=== PATIENT | male | born 1940 | race Caucasian/White ===

== ENCOUNTER → 2017-11-20 | Outpatient (CLI) | payer MEDICARE ==
[~2017-11-20] MED LIST: AMLODIPINE10 MG PO; ASPIRIN81 M1 PO; CARVEDILOL12.5 MG PO; CIPROFLOXACIN500 MG PO; HYDR25T PO; LOPRESSOR25 MG PO; LOSARTAN POTASS50 M1 PO; LUMIGAN 2.5 ML2.5 ML OPH; PLAVIX75 MG PO; PRAZOSIN HCL1 MG PO; SIMVASTATIN80 MG PO; VITAMIN C1000 M2 PO; VITAMIN D31000 IU PO; XALATAN 0.005%2.5 ML INTRAOC
[2017-11-20 12:38] LABS: BASO # 0.1 10*3/uL (0.0-0.1); BASO % 1.1 % (0.0-1.0); EOS # 0.5 10*3/uL (0.0-0.4); EOS % 3.9 % (1.0-4.0); HEMATOCRIT 41.9 % (42.0-52.0); HEMOGLOBIN 14.7 g/dl (14.0-18.0); LYMPH # 2.3 10*3/uL (1.3-4.4); LYMPH % 19.6 % (27.0-41.0); MEAN CELL VOLUME 93.7 fl (80.0-94.0); MEAN CORPUSCULAR HGB 32.9 pg (27.0-31.0); MEAN CORPUSCULAR HGB CONC 35.1 g/dl (33.0-37.0); MEAN PLATELET VOLUME 10.5 fl (9.6-12.3); MONO % 8.1 % (3.0-9.0); NEUT # 7.8 10*3/uL (2.3-7.9); NEUT % 66.8 % (47.0-73.0); PLATELET COUNT AUTOMATED 196 10*3/uL (130-400); RED BLOOD COUNT 4.47 10*6/uL (4.50-5.90); RED CELL DISTRI WIDTH 12.2 % (0-14.5); WHITE BLOOD COUNT 11.7 10*3/uL (4.8-10.8)
[2017-11-20 12:40] LABS: BILIRUBIN NEGATIVE (NEGATIVE); BLOOD NEGATIVE (NEGATIVE); CLARITY CLEAR (CLEAR); COLOR YELLOW (YELLOW); GLUCOSE NEGATIVE (NEGATIVE); KETONE NEGATIVE (NEGATIVE); LEUKO ESTERASE NEGATIVE (NEGATIVE); NITRITE NEGATIVE (NEGATIVE); UROBILINOGEN 0.2 E.U./dl (0.2-1.0)
[2017-11-20 12:48] LABS: ACT PARTIAL THROMBO TIME 26.8 SECONDS (20.8-31.5)
[2017-11-20 13:16] LABS: ALBUMIN 3.7 gm/dl (3.1-4.5); ALKALINE PHOSPHATASE 91 U/L (45-117); BUN 14 mg/dl (7-24); CHLORIDE 101 mmol/L (98-107); POTASSIUM 3.8 mmol/L (3.5-5.1); SGOT/AST 19 IU/L (3-35); SGPT/ALT 28 U/L (12-78); SODIUM 135 mmol/L (136-145); TOTAL PROTEIN 7.2 gm/dL (6.4-8.2)
== END | disposition home or self-care (01) ==
LOC: LAB 11:31
PROVIDERS: Orthopaedic Surgery
DX: Z01.818 Encounter for other preprocedural examination (principal); I10 Essential (primary) hypertension; R35.0 Frequency of micturition; M79.669 Pain in unspecified lower leg; E78.00 Pure hypercholesterolemia, unspecified; M19.90 Unspecified osteoarthritis, unspecified site; R94.31 Abnormal electrocardiogram [ECG] [EKG]; Z79.899 Other long term (current) drug therapy; Z87.891 Personal history of nicotine dependence

== ENCOUNTER → 2019-09-19 | Outpatient (CLI) | payer MEDICARE, OTHER | END | disposition home or self-care (01) | LOC: CARD 12:01 | DX: I65.23 Occlusion and stenosis of bilateral carotid arteries (principal); I34.0 Nonrheumatic mitral (valve) insufficiency ==

== ENCOUNTER → 2019-09-20 | Outpatient (CLI) | payer MEDICARE, OTHER ==
[2019-09-20 10:41] LABS: BASO # 0.1 10*3/uL (0.0-0.1); BASO % 0.8 % (0.0-1.0); EOS # 0.6 10*3/uL (0.0-0.4); EOS % 6.5 % (1.0-4.0); HEMATOCRIT 43.1 % (42.0-52.0); HEMOGLOBIN 14.3 g/dl (14.0-18.0); LYMPH # 1.5 10*3/uL (1.3-4.4); MEAN CELL VOLUME 100.7 fl (80.0-94.0); MEAN CORPUSCULAR HGB 33.4 pg (27.0-31.0); MEAN CORPUSCULAR HGB CONC 33.2 g/dl (33.0-37.0); MEAN PLATELET VOLUME 11.5 fl (9.6-12.3); MONO # 0.8 10*3/uL (0.1-1.0); NEUT # 5.7 10*3/uL (2.3-7.9); NEUT % 66.2 % (47.0-73.0); PLATELET COUNT AUTOMATED 168 10*3/uL (130-400); RED BLOOD COUNT 4.28 10*6/uL (4.50-5.90); RED CELL DISTRI WIDTH 11.9 % (0-14.5); WHITE BLOOD COUNT 8.6 10*3/uL (4.8-10.8)
[2019-09-20 11:12] LABS: ALBUMIN 3.6 gm/dl (3.1-4.5); ALKALINE PHOSPHATASE 98 U/L (45-117); BUN 18 mg/dl (7-24); CHLORIDE 105 mmol/L (98-107); CHOLESTEROL 120 mg/dL (<200); CREATININE 0.92 mg/dL (0.70-1.30); FREE T4 1.19 ng/dl (0.76-1.46); HDL CHOLESTEROL 36 mg/dl (40-60); LDL CHOLESTEROL 72 mg/dL (9-159); POTASSIUM 4.8 mmol/L (3.5-5.1); SGOT/AST 23 IU/L (3-35); SGPT/ALT 25 U/L (12-78); SODIUM 139 mmol/L (136-145); TOTAL PROTEIN 7.3 gm/dL (6.4-8.2); TRIGLYCERIDES 60 mg/dl (<150); VLDL CHOLESTEROL 12 mg/dL (6-40)
[2019-09-20 11:53] LABS: VITAMIN D, 25-HYDROXY 35.3 ng/mL (30-100)
== END | disposition home or self-care (01) ==
LOC: LAB 01:26
PROVIDERS: Internal Medicine
DX: I10 Essential (primary) hypertension (principal); E78.2 Mixed hyperlipidemia; E55.9 Vitamin D deficiency, unspecified; D52.9 Folate deficiency anemia, unspecified; D51.9 Vitamin B12 deficiency anemia, unspecified; R79.89 Other specified abnormal findings of blood chemistry

== ENCOUNTER → 2019-11-01 | Outpatient (CLI) | payer MEDICARE, OTHER ==
[~2019-11-01] MED LIST changes: +NORCO 5-325 TA1 EACH PO
[2019-11-01 14:42] LABS: BASO # 0.1 10*3/uL (0.0-0.1); BASO % 1.1 % (0.0-1.0); EOS % 13.1 % (1.0-4.0); HEMATOCRIT 44.4 % (42.0-52.0); HEMOGLOBIN 14.5 g/dl (14.0-18.0); MEAN CELL VOLUME 96.9 fl (80.0-94.0); MEAN CORPUSCULAR HGB 31.7 pg (27.0-31.0); MEAN CORPUSCULAR HGB CONC 32.7 g/dl (33.0-37.0); MONO # 0.8 10*3/uL (0.1-1.0); MONO % 10.5 % (3.0-9.0); NEUT # 3.9 10*3/uL (2.3-7.9); NEUT % 49.9 % (47.0-73.0); PLATELET COUNT AUTOMATED 168 10*3/uL (130-400); RED BLOOD COUNT 4.58 10*6/uL (4.50-5.90); RED CELL DISTRI WIDTH 12.6 % (0-14.5); WHITE BLOOD COUNT 7.9 10*3/uL (4.8-10.8)
[2019-11-01 14:43] LABS: BILIRUBIN NEGATIVE (NEGATIVE); BLOOD NEGATIVE (NEGATIVE); CLARITY CLEAR (CLEAR); COLOR YELLOW (YELLOW); GLUCOSE NEGATIVE (NEGATIVE); KETONE NEGATIVE (NEGATIVE); LEUKO ESTERASE NEGATIVE (NEGATIVE); NITRITE NEGATIVE (NEGATIVE)
[2019-11-01 14:51] LABS: ACT PARTIAL THROMBO TIME 29.7 SECONDS (20.0-32.1)
[2019-11-01 14:55] LABS: BUN 21 mg/dl (7-24); CHLORIDE 103 mmol/L (98-107); CREATININE 1.04 mg/dL (0.70-1.30); POTASSIUM 3.9 mmol/L (3.5-5.1); SODIUM 136 mmol/L (136-145)
[2019-11-01 15:00] LABS: BACTERIA TRACE; EPITHELIAL CELLS 0-2; RBC 0-2 rbc/hpf (0-2)
== END | disposition home or self-care (01) ==
LOC: LAB 13:02
PROVIDERS: Surgery
DX: Z01.818 Encounter for other preprocedural examination (principal); I44.7 Left bundle-branch block, unspecified; I51.7 Cardiomegaly; D68.8 Other specified coagulation defects; K40.90 Unilateral inguinal hernia, without obstruction or gangrene, not specified as recurrent

== ENCOUNTER → 2019-11-07 | Day surgery (SDC) | payer MEDICARE, OTHER ==
[2019-11-01 13:43] VITALS: BP 147/57
[~2019-11-07] VITALS: Ht 172.7 cm; Wt 68.9 kg
[2019-11-07 08:13] VITALS: BP 110/74
[2019-11-07 10:10] VITALS: BP 136/54
[2019-11-07 10:25] VITALS: BP 126/50
[2019-11-07 10:40] VITALS: BP 123/57
[2019-11-07 10:55] VITALS: BP 132/54
[2019-11-07 11:22] VITALS: BP 142/63
== END | disposition home or self-care (01) ==
LOC: SDC 11-01 13:15
DX: K40.90 Unilateral inguinal hernia, without obstruction or gangrene, not specified as recurrent (principal); I25.10 Atherosclerotic heart disease of native coronary artery without angina pectoris; I11.0 Hypertensive heart disease with heart failure; I50.9 Heart failure, unspecified; E78.5 Hyperlipidemia, unspecified; E78.00 Pure hypercholesterolemia, unspecified; F17.210 Nicotine dependence, cigarettes, uncomplicated; Z79.82 Long term (current) use of aspirin; Z79.899 Other long term (current) drug therapy; Z98.890 Other specified postprocedural states; Z95.5 Presence of coronary angioplasty implant and graft; Z82.49 Family history of ischemic heart disease and other diseases of the circulatory system

== ENCOUNTER → 2020-02-25 | Outpatient (CLI) | payer MEDICARE, OTHER ==
[2020-02-25 14:24] LABS: ACT PARTIAL THROMBO TIME 28.7 SECONDS (20.0-32.1)
[2020-02-25 14:33] LABS: ALBUMIN 3.4 gm/dl (3.1-4.5); ALKALINE PHOSPHATASE 97 U/L (45-117); BUN 18 mg/dl (7-24); CHLORIDE 103 mmol/L (98-107); CHOLESTEROL 105 mg/dL (<200); CREATININE 1.03 mg/dL (0.70-1.30); HDL CHOLESTEROL 37 mg/dl (40-60); LDL CHOLESTEROL 51 mg/dL (9-159); POTASSIUM 4.3 mmol/L (3.5-5.1); SGOT/AST 26 IU/L (3-35); SGPT/ALT 17 U/L (12-78); SODIUM 133 mmol/L (136-145); TOTAL PROTEIN 7.5 gm/dL (6.4-8.2); TRIGLYCERIDES 85 mg/dl (<150); VLDL CHOLESTEROL 17 mg/dL (6-40)
[2020-02-25 14:53] LABS: VITAMIN D, 25-HYDROXY 38.9 ng/mL (30-100)
[2020-02-25 15:31] LABS: BASO # 0.1 10*3/uL (0.0-0.1); BASO % 1.2 % (0.0-1.0); EOS # 1.2 10*3/uL (0.0-0.4); EOS % 14.3 % (1.0-4.0); HEMATOCRIT 43.4 % (42.0-52.0); LYMPH # 2.4 10*3/uL (1.3-4.4); LYMPH % 28.4 % (27.0-41.0); MEAN CELL VOLUME 98.6 fl (80.0-94.0); MEAN CORPUSCULAR HGB 33.2 pg (27.0-31.0); MEAN CORPUSCULAR HGB CONC 33.6 g/dl (33.0-37.0); MEAN PLATELET VOLUME 10.8 fl (9.6-12.3); MONO # 0.8 10*3/uL (0.1-1.0); NEUT # 3.9 10*3/uL (2.3-7.9); NEUT % 46.9 % (47.0-73.0); PLATELET COUNT AUTOMATED 178 10*3/uL (130-400); RED CELL DISTRI WIDTH 12.5 % (0-14.5); WHITE BLOOD COUNT 8.4 10*3/uL (4.8-10.8)
== END | disposition home or self-care (01) ==
LOC: LAB 12:36
PROVIDERS: Internal Medicine
DX: Z01.818 Encounter for other preprocedural examination (principal); J44.9 Chronic obstructive pulmonary disease, unspecified; J98.11 Atelectasis; J84.9 Interstitial pulmonary disease, unspecified; R06.02 Shortness of breath; E55.9 Vitamin D deficiency, unspecified; E78.2 Mixed hyperlipidemia; I10 Essential (primary) hypertension

== ENCOUNTER → 2020-04-14 | Outpatient (CLI) | payer MEDICARE, OTHER | END | disposition home or self-care (01) | LOC: RAD 11:23 | DX: I50.9 Heart failure, unspecified (principal) ==

== ENCOUNTER → 2020-04-22 | Outpatient (CLI) | payer MEDICARE, OTHER ==
[2020-04-22 14:29] LABS: BUN 42 mg/dl (7-24); CHLORIDE 104 mmol/L (98-107); CREATININE 1.15 mg/dL (0.70-1.30); POTASSIUM 3.9 mmol/L (3.5-5.1); SODIUM 135 mmol/L (136-145)
== END | disposition home or self-care (01) ==
LOC: LAB 13:34
PROVIDERS: Internal Medicine
DX: Z79.899 Other long term (current) drug therapy (principal)

== ENCOUNTER → 2020-04-29 | Outpatient (CLI) | payer MEDICARE, OTHER ==
[2020-04-29 14:37] LABS: BASO # 0.1 10*3/uL (0.0-0.1); BASO % 0.6 % (0.0-1.0); EOS # 0.3 10*3/uL (0.0-0.4); EOS % 3.4 % (1.0-4.0); HEMATOCRIT 40.9 % (42.0-52.0); LYMPH # 1.1 10*3/uL (1.3-4.4); LYMPH % 13.9 % (27.0-41.0); MEAN CORPUSCULAR HGB 31.5 pg (27.0-31.0); MEAN CORPUSCULAR HGB CONC 32.8 g/dl (33.0-37.0); MONO # 0.6 10*3/uL (0.1-1.0); MONO % 7.7 % (3.0-9.0); NEUT # 5.9 10*3/uL (2.3-7.9); PLATELET COUNT AUTOMATED 187 10*3/uL (130-400); RED BLOOD COUNT 4.26 10*6/uL (4.50-5.90)
[2020-04-29 15:03] LABS: ALBUMIN 3.5 gm/dl (3.1-4.5); ALKALINE PHOSPHATASE 98 U/L (45-117); BUN 28 mg/dl (7-24); CHLORIDE 107 mmol/L (98-107); CHOLESTEROL 106 mg/dL (<200); CREATININE 1.02 mg/dL (0.70-1.30); FREE T4 1.29 ng/dl (0.76-1.46); HDL CHOLESTEROL 42 mg/dl (40-60); LDL CHOLESTEROL 55 mg/dL (9-159); POTASSIUM 3.5 mmol/L (3.5-5.1); SGOT/AST 21 IU/L (3-35); SGPT/ALT 23 U/L (12-78); SODIUM 135 mmol/L (136-145); TOTAL PROTEIN 7.5 gm/dL (6.4-8.2); TRIGLYCERIDES 43 mg/dl (<150); VLDL CHOLESTEROL 9 mg/dL (6-40)
[2020-04-29 15:24] LABS: VITAMIN D, 25-HYDROXY 38.4 ng/mL (30-100)
== END | disposition home or self-care (01) ==
LOC: LAB 14:01
PROVIDERS: Internal Medicine
DX: Z12.5 Encounter for screening for malignant neoplasm of prostate (principal); I11.0 Hypertensive heart disease with heart failure; I50.23 Acute on chronic systolic (congestive) heart failure; J45.20 Mild intermittent asthma, uncomplicated; E78.2 Mixed hyperlipidemia; K40.90 Unilateral inguinal hernia, without obstruction or gangrene, not specified as recurrent; R70.0 Elevated erythrocyte sedimentation rate; R79.82 Elevated C-reactive protein (CRP); R74.8 Abnormal levels of other serum enzymes; R79.89 Other specified abnormal findings of blood chemistry; M06.9 Rheumatoid arthritis, unspecified; R53.81 Other malaise; E55.9 Vitamin D deficiency, unspecified

== ENCOUNTER 2020-05-16 12:07 | Inpatient (IN) | payer MEDICARE, OTHER ==
[~2020-05-16] VITALS: Ht 170.1 cm; Wt 62.3 kg
[~2020-05-16 12:07] MED LIST changes: -XALATAN 0.005%2.5 ML INTRAOC; +XALATAN 0.005%2.5 ML OU
[2020-05-16 12:12] VITALS: BP 147/68
[2020-05-16 12:48] LABS: BASO # 0.1 10*3/uL (0.0-0.1); BASO % 0.7 % (0.0-1.0); EOS # 0.3 10*3/uL (0.0-0.4); EOS % 3.5 % (1.0-4.0); HEMATOCRIT 38.5 % (42.0-52.0); LYMPH # 0.9 10*3/uL (1.3-4.4); LYMPH % 13.2 % (27.0-41.0); MEAN CELL VOLUME 96.7 fl (80.0-94.0); MEAN CORPUSCULAR HGB 31.7 pg (27.0-31.0); MEAN CORPUSCULAR HGB CONC 32.7 g/dl (33.0-37.0); MEAN PLATELET VOLUME 11.3 fl (9.6-12.3); MONO # 0.7 10*3/uL (0.1-1.0); MONO % 9.2 % (3.0-9.0); NEUT # 5.2 10*3/uL (2.3-7.9); PLATELET COUNT AUTOMATED 156 10*3/uL (130-400); RED BLOOD COUNT 3.98 10*6/uL (4.50-5.90); RED CELL DISTRI WIDTH 13.6 % (0-14.5); WHITE BLOOD COUNT 7.1 10*3/uL (4.8-10.8)
[2020-05-16 12:58] LABS: ACT PARTIAL THROMBO TIME 30.4 SECONDS (20.0-32.1); INTERNATIONAL NORM RATIO 1.1 (2.0-3.5)
[2020-05-16 13:02] LABS: ALKALINE PHOSPHATASE 97 U/L (45-117); BUN 23 mg/dl (7-24); CHLORIDE 105 mmol/L (98-107); CREATININE 0.96 mg/dL (0.70-1.30); POTASSIUM 3.8 mmol/L (3.5-5.1); SGOT/AST 14 IU/L (3-35); SGPT/ALT 17 U/L (12-78); SODIUM 138 mmol/L (136-145); TOTAL PROTEIN 6.9 gm/dL (6.4-8.2)
[2020-05-16 13:03] LABS: TROPONIN I 0.025 ng/ml (<0.045)
[2020-05-16 13:05] VITALS: BP 140/60
[2020-05-16 14:01] VITALS: BP 130/78
[2020-05-16 14:11] VITALS: BP 130/78
[2020-05-16] MEDS ORDERED: MINIPRESS1 MG PO (14:40)
[2020-05-16 16:00] VITALS: BP 165/79
[2020-05-16 20:00] VITALS: BP 109/75
[2020-05-17] VITALS: BP 126/58
[2020-05-17 08:00] VITALS: BP 112/84; BP 160/80
[2020-05-17 12:00] VITALS: BP 107/71
[2020-05-17 16:00] VITALS: BP 126/67
[2020-05-17 20:00] VITALS: BP 124/71
[2020-05-18] VITALS: BP 138/77
[2020-05-18 06:33] LABS: BASO # 0.1 10*3/uL (0.0-0.1); BASO % 0.6 % (0.0-1.0); EOS # 0.4 10*3/uL (0.0-0.4); EOS % 3.9 % (1.0-4.0); HEMATOCRIT 39.1 % (42.0-52.0); LYMPH # 1.5 10*3/uL (1.3-4.4); LYMPH % 16.1 % (27.0-41.0); MEAN CELL VOLUME 96.1 fl (80.0-94.0); MEAN CORPUSCULAR HGB 31.9 pg (27.0-31.0); MEAN CORPUSCULAR HGB CONC 33.2 g/dl (33.0-37.0); MEAN PLATELET VOLUME 10.4 fl (9.6-12.3); MONO # 0.9 10*3/uL (0.1-1.0); MONO % 9.4 % (3.0-9.0); NEUT # 6.5 10*3/uL (2.3-7.9); NEUT % 69.5 % (47.0-73.0); PLATELET COUNT AUTOMATED 175 10*3/uL (130-400); RED BLOOD COUNT 4.07 10*6/uL (4.50-5.90); RED CELL DISTRI WIDTH 13.6 % (0-14.5); WHITE BLOOD COUNT 9.3 10*3/uL (4.8-10.8)
[2020-05-18 06:50] LABS: BUN 26 mg/dl (7-24); CHLORIDE 101 mmol/L (98-107); CREATININE 1.08 mg/dL (0.70-1.30); POTASSIUM 3.8 mmol/L (3.5-5.1); SODIUM 136 mmol/L (136-145)
[2020-05-18 08:00] VITALS: BP 130/80
[2020-05-18 12:00] VITALS: BP 105/71
[2020-05-18 16:00] VITALS: BP 109/57
[2020-05-18 20:00] VITALS: BP 140/75
[2020-05-18 23:56] VITALS: BP 139/71
[2020-05-19 08:00] VITALS: BP 132/64
[2020-05-19 12:00] VITALS: BP 153/89
[2020-05-19 16:00] VITALS: BP 108/69
[2020-05-19 20:00] VITALS: BP 86/57; BP 96/48
[2020-05-20] VITALS: BP 85/56
[2020-05-20 08:00] VITALS: BP 138/70; BP 92/60
[2020-05-20 16:00] VITALS: BP 120/61
[2020-05-20 20:00] VITALS: BP 119/63
[2020-05-21] VITALS: BP 142/78; BP 153/88
[2020-05-21 07:32] LABS: BUN 27 mg/dl (7-24); CHLORIDE 101 mmol/L (98-107); POTASSIUM 4.7 mmol/L (3.5-5.1); SODIUM 131 mmol/L (136-145)
[2020-05-21 08:00] VITALS: BP 125/67
[2020-05-21 08:30] LABS: BASO # 0.1 10*3/uL (0.0-0.1); BASO % 0.8 % (0.0-1.0); EOS # 0.7 10*3/uL (0.0-0.4); EOS % 7.9 % (1.0-4.0); HEMATOCRIT 45.2 % (42.0-52.0); LYMPH # 1.6 10*3/uL (1.3-4.4); LYMPH % 17.5 % (27.0-41.0); MEAN CELL VOLUME 95.4 fl (80.0-94.0); MEAN CORPUSCULAR HGB 31.4 pg (27.0-31.0); MEAN PLATELET VOLUME 10.2 fl (9.6-12.3); MONO % 10.5 % (3.0-9.0); NEUT # 5.8 10*3/uL (2.3-7.9); NEUT % 62.8 % (47.0-73.0); PLATELET COUNT AUTOMATED 200 10*3/uL (130-400); RED BLOOD COUNT 4.74 10*6/uL (4.50-5.90); RED CELL DISTRI WIDTH 13.2 % (0-14.5); WHITE BLOOD COUNT 9.3 10*3/uL (4.8-10.8)
[2020-05-21] MEDS ORDERED: CARVEDILOL6.25 MG PO (08:53)
[2020-05-21] MEDS ORDERED: LASIX40 MG PO (08:53)
[2020-05-21] MEDS ORDERED: ALDACTONE25 MG PO (08:53)
[2020-05-21] MEDS ORDERED: ENTRESTO 24 MG1 EACH PO (08:53)
[2020-05-21 12:00] VITALS: BP 137/67
== END 2020-05-21 18:16 | disposition home health service (06) | DRG 292 ==
LOC: ED 12:07 → EDHOLD 13:51 → 5E 13:51
PROVIDERS: Emergency Medicine; ADMIT Internal Medicine; ATTEND Internal Medicine
PROC: 4A02XM4 Measurement of Cardiac Total Activity, External Approach (ICD-10-PCS; principal; 2020-05-19)
PROC: 3E073KZ Introduction of Other Diagnostic Substance into Coronary Artery, Percutaneous Approach (ICD-10-PCS; principal; 2020-05-19)
DX: I11.0 Hypertensive heart disease with heart failure (principal); I38 Endocarditis, valve unspecified; I50.23 Acute on chronic systolic (congestive) heart failure; I42.0 Dilated cardiomyopathy; J44.9 Chronic obstructive pulmonary disease, unspecified; I34.0 Nonrheumatic mitral (valve) insufficiency; I65.29 Occlusion and stenosis of unspecified carotid artery; E78.2 Mixed hyperlipidemia; H91.90 Unspecified hearing loss, unspecified ear; I73.9 Peripheral vascular disease, unspecified; I44.7 Left bundle-branch block, unspecified; K66.8 Other specified disorders of peritoneum; Z82.49 Family history of ischemic heart disease and other diseases of the circulatory system; Z79.899 Other long term (current) drug therapy

== ENCOUNTER 2020-07-27 13:42 | Inpatient (IN) | payer MEDICARE, OTHER ==
[~2020-07-27] VITALS: Ht 170.2 cm; Wt 60.1 kg
[~2020-07-27 13:42] MED LIST changes: +ALDACTONE25 MG PO; +CARVEDILOL6.25 MG PO; +ENTRESTO 24 MG1 EACH PO; +LASIX40 MG PO; +MINIPRESS1 MG PO
[2020-07-27 13:53] VITALS: BP 121/74
[2020-07-27 14:19] LABS: BASO % 0.4 % (0.0-1.0); EOS # 0.2 10*3/uL (0.0-0.4); EOS % 1.8 % (1.0-4.0); HEMATOCRIT 44.4 % (42.0-52.0); LYMPH # 0.8 10*3/uL (1.3-4.4); LYMPH % 9.1 % (27.0-41.0); MEAN CELL VOLUME 100.7 fl (80.0-94.0); MEAN CORPUSCULAR HGB 31.7 pg (27.0-31.0); MEAN CORPUSCULAR HGB CONC 31.5 g/dl (33.0-37.0); MEAN PLATELET VOLUME 10.5 fl (9.6-12.3); MONO # 0.6 10*3/uL (0.1-1.0); NEUT # 7.2 10*3/uL (2.3-7.9); PLATELET COUNT AUTOMATED 193 10*3/uL (130-400); RED BLOOD COUNT 4.41 10*6/uL (4.50-5.90); RED CELL DISTRI WIDTH 16.3 % (0-14.5); WHITE BLOOD COUNT 8.9 10*3/uL (4.8-10.8)
[2020-07-27 14:31] LABS: ACT PARTIAL THROMBO TIME 30.8 SECONDS (20.0-32.1); INTERNATIONAL NORM RATIO 1.2 (2.0-3.5)
[2020-07-27 14:40] LABS: ALBUMIN 3.2 gm/dl (3.1-4.5); ALKALINE PHOSPHATASE 112 U/L (45-117); BUN 31 mg/dl (7-24); CHLORIDE 106 mmol/L (98-107); CREATININE 1.18 mg/dL (0.70-1.30); POTASSIUM 4.8 mmol/L (3.5-5.1); SGOT/AST 26 IU/L (3-35); SGPT/ALT 29 U/L (12-78); SODIUM 135 mmol/L (136-145); TOTAL PROTEIN 7.3 gm/dL (6.4-8.2)
[2020-07-27 14:52] LABS: TROPONIN I 0.085 ng/ml (<0.045)
--- NOTE | 2020-07-27 17:16 | NUR ---
PT UP TO TOILET WITH ASSITANCE. MEAL TRAY ORDERED. NO VOICED COMPLAINTS AT THIS TIME.
--- NOTE | 2020-07-27 19:00 | NUR ---
ASSUMED PT. CARE FROM MADYSON GAGNON
--- NOTE | 2020-07-27 19:21 | NUR ---
PT. UP AND TO RESTROOM.
--- NOTE | 2020-07-27 19:43 | NUR ---
PT. RESTING IN BED, APPEARS TO BE IN NO DISTRESS AT THIS TIME. WILL CONTINUE TO MONITOR.
[2020-07-27 20:24] VITALS: BP 121/74
[2020-07-27 20:28] VITALS: BP 109/72
--- NOTE | 2020-07-27 20:28 | NUR ---
A 80, admitted to 5E, under the services of Dr. NNEKA SANTOS,MARVIN Price with a diagnosis of ACUTE HEART FAILURE. Chief complaint is SOB. Patient arrived via bed from ER. Monitor applied. Initial assessment completed. Vital signs taken and recorded. DR. NNEKA SANTOS,MARVIN Price notified of admission to the unit. Orders received. See assessment for past medical history, medications and allergies. Patient oriented to unit. Clothing/patient valuable form completed. KALYANI FAUSTIN
--- NOTE | 2020-07-27 20:55 | NUR ---
CALLED. ORDER JACQUELINE PLCE PER WISHES.
--- NOTE | 2020-07-27 21:08 | NUR ---
MADE AWARE OF CONSULT. STATED CURRENT ORDER ARE FINE. HE WILL SEE TOMORROW MORNING.
[2020-07-28] VITALS: BP 114/60
--- NOTE | 2020-07-28 09:00 | NUR ---
Golf Ball Winder in to talk to patient. Patient states lives at home with his . There are 0 steps in the home. Physician: Dr. Thong Mayo Pharmacy: [facility] [place] Home health services: none Patient's level of ADLs: INDEPENDENT Patient has working utilities: yes DME: [employer] Follow-up physician's appointment after d/c: he prefers to make his own follow up appt after discharge Does patient want to access PORTAL?: no Discharge plan discussed with patient. He is very [place]. He lives at home with his . He states he is independent in his ADLs and ambulation. Discussed home health care services and he declines. CM will continue to follow for any discharge planning needs. When medically stable he will be discharged to home. He states his will provide transportation on discharge. MADAN ONEIL
[2020-07-28 12:00] VITALS: BP 142/71
--- NOTE | 2020-07-28 12:56 | NUR ---
CARDIOLOGY GROUP PHYSICIAN SAW PATIENT TODAY STATED TO KEEP USING BRONCHODILATORS. HE WILL CONTINUE TO ADDRESS CHF WHILE PATIENT IS HERE WITH CARDIO [facility].
--- NOTE | 2020-07-28 14:00 | NUR ---
PHYSICAL THERAPY Physical Therapy evaluation completed on 5th floor with full evaluation to follow. Recommend physical therapy per plan of care and home with and HH upon discharge. Thank you for this referral. Sara Ace PT
[2020-07-28 16:00] VITALS: BP 136/76
[2020-07-28 20:00] VITALS: BP 132/93
[2020-07-29] VITALS: BP 112/60
[2020-07-29 06:23] LABS: BUN 25 mg/dl (7-24); CHLORIDE 102 mmol/L (98-107); CREATININE 1.05 mg/dL (0.70-1.30); SODIUM 135 mmol/L (136-145)
[2020-07-29 06:47] LABS: POTASSIUM 3.8 mmol/L (3.5-5.1)
[2020-07-29 06:49] LABS: BASO # 0.1 10*3/uL (0.0-0.1); BASO % 0.5 % (0.0-1.0); EOS # 0.3 10*3/uL (0.0-0.4); EOS % 2.8 % (1.0-4.0); HEMATOCRIT 40.8 % (42.0-52.0); LYMPH # 1.1 10*3/uL (1.3-4.4); LYMPH % 11.7 % (27.0-41.0); MEAN CORPUSCULAR HGB 32.4 pg (27.0-31.0); MEAN CORPUSCULAR HGB CONC 33.3 g/dl (33.0-37.0); MEAN PLATELET VOLUME 10.7 fl (9.6-12.3); MONO # 1.1 10*3/uL (0.1-1.0); MONO % 11.6 % (3.0-9.0); NEUT # 6.8 10*3/uL (2.3-7.9); NEUT % 72.9 % (47.0-73.0); PLATELET COUNT AUTOMATED 189 10*3/uL (130-400); RED CELL DISTRI WIDTH 15.9 % (0-14.5); WHITE BLOOD COUNT 9.3 10*3/uL (4.8-10.8)
[2020-07-29 06:54] LABS: MEAN CELL VOLUME 97.1 fl (80.0-94.0)
[2020-07-29 08:00] VITALS: BP 140/76
--- NOTE | 2020-07-29 09:00 | NUR ---
CM in to see patient. No new needs or request at this time. Discussed short term rehab and home health care services and he declines. CM will continue to follow for any discharge planning needs. When medically stable he will be discharged to home.
--- NOTE | 2020-07-29 09:02 | NUR ---
PT RESTING IN BED. NO DISTRESS NOTED. WILL MONITOR
--- NOTE | 2020-07-29 10:05 | NUR ---
DR EARLY AND DR SINGLETON BOTH NOTIFIED OF CRITICAL TROPONIN
[2020-07-29 12:00] VITALS: BP 96/48
--- NOTE | 2020-07-29 14:35 | NUR ---
Faxed home health care resumption to [facility] along with clinical
--- NOTE | 2020-07-29 14:49 | NUR ---
PHYSICAL THERAPY Patient presented to therapy in supine with head of bed flat and bed alarm off. Patient reports no pain. Patient gives informed consent for treatment. Patient was identified by name and on wristband. Patient has no spO2, catheter or IVs at this time. Patient performed supine <> sitting on EOB with SBA. Patient sat on EOB with SBA. Patient STS <> EOB with SBA. Patient ambulated with no assistive device and Close Supervision for 92' x 1 with no LOB and verbal cues for wider NOEMI. Patient tolerated gait well although he appeared a little fatigued. Patient sit > supine in bed with Supervision. Patient donned and doffed his shoes himself. Patient was left in supine i nbed wit hhead of bed flat and call light withn reach. Patient ambulates <> bathroom throughout the day by himself. Patient was 1:1 with this CONSTRUCTION IRONWORKER for 15 MINUTES TOTAL. EUGENIO SUE CONSTRUCTION IRONWORKER
[2020-07-29 16:00] VITALS: BP 104/63
--- NOTE | 2020-07-29 19:10 | NUR ---
REPORT RECEIVED. PT WATCHING TV
[2020-07-29 20:00] VITALS: BP 114/57
--- NOTE | 2020-07-29 22:00 | NUR ---
IN TO SE PT. NO COMPLAINTS
[2020-07-30] VITALS: BP 115/43
--- NOTE | 2020-07-30 01:00 | NUR ---
PT ASLEEP AT THIS TIME
--- NOTE | 2020-07-30 05:00 | NUR ---
PT ASLEEP. REPIRATIONS EASY AND UNLABORED
[2020-07-30 06:24] LABS: BUN 25 mg/dl (7-24); CHLORIDE 102 mmol/L (98-107); CREATININE 1.02 mg/dL (0.70-1.30); POTASSIUM 3.7 mmol/L (3.5-5.1); SODIUM 136 mmol/L (136-145)
[2020-07-30 08:00] VITALS: BP 110/50
--- NOTE | 2020-07-30 08:59 | NUR ---
PT RESTING IN BED/ NO DISTRESS NOTED. WILL MONITOR
[2020-07-30] MEDS ORDERED: ADV 500/50 INH (10:00)
--- NOTE | 2020-07-30 10:43 | NUR ---
PHYSICAL THERAPY TREATMENT TIME: OUT 10:40 AM 17 MINUTES TOTAL Patient presented to therapy in supine with head of bed elevated and bed alarm off. Patient is not on spO2, has no IVS, and no catheter. Patient has life-vest on. Patient gives informed consent for treatment. Patient was identified by name and on wristband. Patient performed supine <> sitting EOB with Supervision. Patient sat on EOB with Supervision. Patient completed STS <> EOB with Supervison. Patient ambulated with no assistive device and Close Supervision for 200' x 1 with no LOB and no SOB. Patient then sat on EOB and performed seated Bilateral LE ther ex 2 x 10 reps each including LAQs , marches and heel/toe raises. Patient completed sit EOB to supine in bed with Supervision. Patient was left in supine in bed with head of bed elevated and call light within reach. Patient was 1:1 with this PROVIDER NETWORK MANAGER for 17 minutes total. EUGENIO SUE PROVIDER NETWORK MANAGER
--- NOTE | 2020-07-30 13:30 | NUR ---
Discharge instructions reviewed with patient/family. Patient receptive and verbalizes understanding. Follow-up care arranged. Written instructions given to patient/family. YULISSA DYER
--- NOTE | 2020-07-31 07:46 | NUR ---
PHYSICAL THERAPY CO-SIGN I approve of the Physical Therapy notes written above. MADAN HERNANDEZ PT, DPT
== END 2020-07-30 13:30 | disposition home health service (06) | DRG 291 ==
LOC: ED 13:42 → 5E 16:10 → EDHOLD 16:10 → 5E 18:36
PROVIDERS: Emergency Medicine; ADMIT Internal Medicine; ATTEND Internal Medicine
DX: I11.0 Hypertensive heart disease with heart failure (principal); J81.0 Acute pulmonary edema; E87.1 Hypo-osmolality and hyponatremia; I50.23 Acute on chronic systolic (congestive) heart failure; E55.9 Vitamin D deficiency, unspecified; R73.9 Hyperglycemia, unspecified; R77.8 Other specified abnormalities of plasma proteins; J43.2 Centrilobular emphysema; E78.5 Hyperlipidemia, unspecified; I25.10 Atherosclerotic heart disease of native coronary artery without angina pectoris; I25.5 Ischemic cardiomyopathy; I34.0 Nonrheumatic mitral (valve) insufficiency; Z82.49 Family history of ischemic heart disease and other diseases of the circulatory system; Z79.899 Other long term (current) drug therapy

== ENCOUNTER 2020-08-04 14:44 | Emergency (ER) | payer MEDICARE, OTHER ==
[~2020-08-04] VITALS: Ht 170.1 cm; Wt 61.2 kg
[~2020-08-04 14:44] MED LIST changes: +ADV 500/50 INH
[2020-08-04 15:19] LABS: BASO # 0.1 10*3/uL (0.0-0.1); BASO % 0.7 % (0.0-1.0); EOS # 0.2 10*3/uL (0.0-0.4); EOS % 2.4 % (1.0-4.0); HEMATOCRIT 47.4 % (42.0-52.0); LYMPH % 10.1 % (27.0-41.0); MEAN CELL VOLUME 97.7 fl (80.0-94.0); MEAN CORPUSCULAR HGB CONC 32.7 g/dl (33.0-37.0); MEAN PLATELET VOLUME 9.9 fl (9.6-12.3); MONO # 1.1 10*3/uL (0.1-1.0); MONO % 11.2 % (3.0-9.0); NEUT # 7.5 10*3/uL (2.3-7.9); NEUT % 75.1 % (47.0-73.0); PLATELET COUNT AUTOMATED 242 10*3/uL (130-400); RED BLOOD COUNT 4.85 10*6/uL (4.50-5.90); RED CELL DISTRI WIDTH 15.4 % (0-14.5)
[2020-08-04 15:36] LABS: ALBUMIN 3.2 gm/dl (3.1-4.5); ALKALINE PHOSPHATASE 99 U/L (45-117); BUN 37 mg/dl (7-24); CHLORIDE 104 mmol/L (98-107); CREATININE 0.97 mg/dL (0.70-1.30); POTASSIUM 4.6 mmol/L (3.5-5.1); SGOT/AST 21 IU/L (3-35); SGPT/ALT 25 U/L (12-78); SODIUM 135 mmol/L (136-145); TOTAL PROTEIN 7.6 gm/dL (6.4-8.2)
[2020-08-04 15:43] LABS: TROPONIN I 0.054 ng/ml (<0.045)
[2020-08-04 17:17] LABS: BILIRUBIN Negative (Negative); BLOOD Negative (Negative); CLARITY Clear (Clear); COLOR Yellow (Yellow); GLUCOSE Negative (Negative); KETONE Negative (Negative); LEUKO ESTERASE Negative (Negative); NITRITE Negative (Negative); SPECIFIC GRAVITY 1.015 (1.001-1.030)
[2020-08-04 17:31] LABS: BACTERIA TRACE; EPITHELIAL CELLS 0-2; RBC 0-2 rbc/hpf (0-2); WBC 0-2 wbc/hpf (0-5)
== END 2020-08-04 18:04 | disposition home or self-care (01) ==
LOC: ED 14:44
PROVIDERS: Nurse Practitioner
DX: E86.0 Dehydration (principal); Z79.899 Other long term (current) drug therapy; Z95.810 Presence of automatic (implantable) cardiac defibrillator

== ENCOUNTER → 2020-09-03 | Outpatient (CLI) | payer MEDICARE, OTHER | END | disposition home or self-care (01) | LOC: CARD 00:11 | PROVIDERS: ATTEND Internal Medicine Cardiovascular Disease | DX: I08.1 Rheumatic disorders of both mitral and tricuspid valves (principal); I50.9 Heart failure, unspecified ==

== ENCOUNTER → 2020-11-04 | Outpatient (CLI) | payer MEDICARE, OTHER | END | disposition home or self-care (01) | LOC: CT 02:54 | PROVIDERS: ATTEND Internal Medicine Critical Care Medicine | DX: J98.11 Atelectasis (principal); I51.7 Cardiomegaly; I25.10 Atherosclerotic heart disease of native coronary artery without angina pectoris ==

== ENCOUNTER → 2021-05-04 | Outpatient (CLI) | payer MEDICARE, OTHER | END | disposition home or self-care (01) | LOC: CARD 00:02 | PROVIDERS: ATTEND Internal Medicine Cardiovascular Disease | DX: I08.1 Rheumatic disorders of both mitral and tricuspid valves (principal); I27.20 Pulmonary hypertension, unspecified; I50.9 Heart failure, unspecified; R06.00 Dyspnea, unspecified ==

== ENCOUNTER 2021-05-27 13:38 | Inpatient (IN) | payer MEDICARE, OTHER ==
[~2021-05-27] VITALS: Ht 170 cm; Wt 82.0 kg
[2021-05-27 13:43] VITALS: BP 119/64
[2021-05-27 19:05] VITALS: BP 121/78
[2021-05-27 20:21] LABS: BASO # 0.1 10*3/uL (0.0-0.1); BASO % 0.7 % (0.0-1.0); EOS # 0.4 10*3/uL (0.0-0.4); EOS % 5.2 % (1.0-4.0); LYMPH # 1.3 10*3/uL (1.3-4.4); LYMPH % 17.5 % (27.0-41.0); MEAN CELL VOLUME 102.4 fl (80.0-94.0); MEAN CORPUSCULAR HGB 33.3 pg (27.0-31.0); MEAN CORPUSCULAR HGB CONC 32.6 g/dl (33.0-37.0); MONO # 0.7 10*3/uL (0.1-1.0); MONO % 9.3 % (3.0-9.0); NEUT % 66.9 % (47.0-73.0); PLATELET COUNT AUTOMATED 167 10*3/uL (130-400); RED BLOOD COUNT 4.59 10*6/uL (4.50-5.90); WHITE BLOOD COUNT 7.4 10*3/uL (4.8-10.8)
[2021-05-27 20:39] LABS: ALBUMIN 3.6 gm/dl (3.1-4.5); ALKALINE PHOSPHATASE 139 U/L (45-117); BUN 30 mg/dl (7-24); CHLORIDE 100 mmol/L (98-107); CREATININE 1.15 mg/dL (0.70-1.30); POTASSIUM 4.3 mmol/L (3.5-5.1); SGOT/AST 32 IU/L (3-35); SGPT/ALT 43 U/L (12-78); SODIUM 135 mmol/L (136-145); TOTAL PROTEIN 8.4 gm/dL (6.4-8.2)
[2021-05-27 22:40] VITALS: BP 98/46
[2021-05-28 00:02] LABS: BUN 32 mg/dl (7-24); CHLORIDE 104 mmol/L (98-107); CREATININE 1.07 mg/dL (0.70-1.30); POTASSIUM 3.9 mmol/L (3.5-5.1); SODIUM 138 mmol/L (136-145)
[2021-05-28 06:22] LABS: CHLORIDE 100 mmol/L (98-107); POTASSIUM 3.9 mmol/L (3.5-5.1); SODIUM 135 mmol/L (136-145)
[2021-05-28 06:26] LABS: BUN 30 mg/dl (7-24); CREATININE 1.14 mg/dL (0.70-1.30)
[2021-05-28 08:11] VITALS: BP 113/46
[2021-05-28 12:29] VITALS: BP 103/38
[2021-05-28 14:16] VITALS: BP 103/74
[2021-05-28 14:51] VITALS: BP 94/48
[2021-05-28 20:00] VITALS: BP 95/45
[2021-05-29] VITALS: BP 110/66
[2021-05-29 07:15] LABS: BUN 35 mg/dl (7-24); CHLORIDE 100 mmol/L (98-107); CREATININE 1.26 mg/dL (0.70-1.30); POTASSIUM 3.9 mmol/L (3.5-5.1); SODIUM 135 mmol/L (136-145)
[2021-05-29 08:00] VITALS: BP 104/59
[2021-05-29 12:00] VITALS: BP 89/43
[2021-05-29 16:00] VITALS: BP 91/54
[2021-05-29 20:00] VITALS: BP 105/49
[2021-05-30] VITALS (7 sets, daily range): BP systolic 70–114; BP diastolic 47–60
[2021-05-30 09:03] LABS: BUN 32 mg/dl (7-24); CHLORIDE 102 mmol/L (98-107); CREATININE 1.18 mg/dL (0.70-1.30); POTASSIUM 3.7 mmol/L (3.5-5.1); SODIUM 136 mmol/L (136-145)
[2021-05-31] VITALS: BP 98/64
[2021-05-31 04:09] VITALS: BP 110/64
[2021-05-31 06:58] LABS: BASO # 0.1 10*3/uL (0.0-0.1); BASO % 0.6 % (0.0-1.0); EOS # 0.4 10*3/uL (0.0-0.4); EOS % 4.6 % (1.0-4.0); HEMATOCRIT 43.2 % (42.0-52.0); LYMPH # 1.4 10*3/uL (1.3-4.4); LYMPH % 14.5 % (27.0-41.0); MEAN CELL VOLUME 100.5 fl (80.0-94.0); MEAN CORPUSCULAR HGB 32.8 pg (27.0-31.0); MEAN CORPUSCULAR HGB CONC 32.6 g/dl (33.0-37.0); MEAN PLATELET VOLUME 10.7 fl (9.6-12.3); MONO # 1.1 10*3/uL (0.1-1.0); MONO % 10.9 % (3.0-9.0); NEUT # 6.6 10*3/uL (2.3-7.9); NEUT % 69.1 % (47.0-73.0); PLATELET COUNT AUTOMATED 158 10*3/uL (130-400); RED CELL DISTRI WIDTH 13.8 % (0-14.5); WHITE BLOOD COUNT 9.6 10*3/uL (4.8-10.8)
[2021-05-31 07:20] LABS: BUN 31 mg/dl (7-24); CHLORIDE 104 mmol/L (98-107); SODIUM 136 mmol/L (136-145)
[2021-05-31 07:24] LABS: CREATININE 1.22 mg/dL (0.70-1.30)
[2021-05-31 08:00] VITALS: BP 123/82
[2021-05-31 12:00] VITALS: BP 103/62
[2021-05-31] MEDS ORDERED: ALBUTEROL2.5 MG/0.5 INH (16:26)
== END 2021-05-31 17:45 | disposition home or self-care (01) | DRG 292 ==
LOC: ED 13:38 → 4E 21:53 → EDHOLD 21:53 → 4E 05-28 14:54
PROVIDERS: Internal Medicine; Physician Assistant; ADMIT Internal Medicine; ATTEND Internal Medicine
DX: I11.0 Hypertensive heart disease with heart failure (principal); N17.9 Acute kidney failure, unspecified; I50.23 Acute on chronic systolic (congestive) heart failure; I25.5 Ischemic cardiomyopathy; J43.2 Centrilobular emphysema; I08.1 Rheumatic disorders of both mitral and tricuspid valves; Z20.822 Contact with and (suspected) exposure to COVID-19; E78.2 Mixed hyperlipidemia; Z96.643 Presence of artificial hip joint, bilateral; F17.210 Nicotine dependence, cigarettes, uncomplicated; J84.10 Pulmonary fibrosis, unspecified; R26.2 Difficulty in walking, not elsewhere classified; R62.7 Adult failure to thrive; E55.9 Vitamin D deficiency, unspecified; H40.9 Unspecified glaucoma; I25.10 Atherosclerotic heart disease of native coronary artery without angina pectoris; I25.2 Old myocardial infarction; Z82.49 Family history of ischemic heart disease and other diseases of the circulatory system

== ENCOUNTER 2021-07-07 13:20 | Inpatient (IN) | payer MEDICARE, OTHER ==
[2021-07-07] VITALS (7 sets, daily range): BP systolic 88–109; BP diastolic 55–77
[~2021-07-07] VITALS: Ht 170.1 cm; Wt 56.3 kg
[~2021-07-07 13:20] MED LIST changes: +ALBUTEROL2.5 MG/0.5 INH; +ALDACTONE25 M1 PO; +BUMETANIDE1 MG PO; +PRAVASTATIN SOD80 MG PO
[2021-07-07 14:19] LABS: BASO % 0.6 % (0.0-1.0); EOS # 0.1 10*3/uL (0.0-0.4); EOS % 1.5 % (1.0-4.0); HEMATOCRIT 42.1 % (42.0-52.0); LYMPH # 0.8 10*3/uL (1.3-4.4); LYMPH % 13.9 % (27.0-41.0); MEAN CELL VOLUME 96.6 fl (80.0-94.0); MEAN CORPUSCULAR HGB 32.8 pg (27.0-31.0); MEAN PLATELET VOLUME 12.3 fl (9.6-12.3); MONO # 0.4 10*3/uL (0.1-1.0); MONO % 7.7 % (3.0-9.0); NEUT # 4.1 10*3/uL (2.3-7.9); NEUT % 74.8 % (47.0-73.0); PLATELET COUNT AUTOMATED 96 10*3/uL (130-400); RED BLOOD COUNT 4.36 10*6/uL (4.50-5.90); RED CELL DISTRI WIDTH 12.7 % (0-14.5); WHITE BLOOD COUNT 5.5 10*3/uL (4.8-10.8)
[2021-07-07 14:35] LABS: ALBUMIN 2.5 gm/dl (3.1-4.5); ALKALINE PHOSPHATASE 103 U/L (45-117); BUN 43 mg/dl (7-24); CHLORIDE 109 mmol/L (98-107); CREATININE 0.93 mg/dL (0.70-1.30); POTASSIUM 4.3 mmol/L (3.5-5.1); SGOT/AST 51 IU/L (3-35); SGPT/ALT 90 U/L (12-78); SODIUM 137 mmol/L (136-145); TOTAL PROTEIN 6.2 gm/dL (6.4-8.2)
[2021-07-07 14:39] LABS: TROPONIN I 0.052 ng/ml (<0.045)
[2021-07-07] MEDS ORDERED: CARVEDILOL6.25 MG PO (20:41)
[2021-07-08] VITALS: BP 97/56
[2021-07-08 08:00] VITALS: BP 106/64
[2021-07-08 12:00] VITALS: BP 122/68
[2021-07-08 16:00] VITALS: BP 104/51
[2021-07-08 20:00] VITALS: BP 118/70
[2021-07-08 21:00] VITALS: BP 108/76
[2021-07-09] VITALS: BP 67/52
[2021-07-09 00:41] VITALS: BP 84/56
[2021-07-09 06:17] LABS: HEMATOCRIT 41.3 % (42.0-52.0); MEAN CELL VOLUME 97.9 fl (80.0-94.0); MEAN CORPUSCULAR HGB 32.9 pg (27.0-31.0); MEAN CORPUSCULAR HGB CONC 33.7 g/dl (33.0-37.0); MEAN PLATELET VOLUME 11.6 fl (9.6-12.3); RED BLOOD COUNT 4.22 10*6/uL (4.50-5.90); RED CELL DISTRI WIDTH 12.9 % (0-14.5); WHITE BLOOD COUNT 7.7 10*3/uL (4.8-10.8)
[2021-07-09 06:23] LABS: BUN 35 mg/dl (7-24); CHLORIDE 105 mmol/L (98-107); CREATININE 1.13 mg/dL (0.70-1.30); POTASSIUM 4.6 mmol/L (3.5-5.1); SODIUM 135 mmol/L (136-145)
[2021-07-09 06:30] LABS: PLATELET COUNT AUTOMATED 129 10*3/uL (130-400)
[2021-07-09 07:14] LABS: ATYPICAL LYMPHS 10 % (0-0); BURR CELLS MODERATE; TOTAL CELLS COUNTED 100 #CELLS
[2021-07-09 07:46] LABS: PLATELET SUFFICIENCY LOW (NORMAL)
[2021-07-09 08:00] VITALS: BP 92/50
[2021-07-09 12:00] VITALS: BP 107/50
[2021-07-09 16:00] VITALS: BP 93/66
[2021-07-09 20:00] VITALS: BP 81/47
[2021-07-10] VITALS: BP 74/57
[2021-07-10 04:00] VITALS: BP 95/57
[2021-07-10 05:48] LABS: BUN 34 mg/dl (7-24); CHLORIDE 105 mmol/L (98-107); CREATININE 1.16 mg/dL (0.70-1.30); SODIUM 133 mmol/L (136-145)
[2021-07-10 08:00] VITALS: BP 116/83
[2021-07-10 16:00] VITALS: BP 111/76
[2021-07-10 20:00] VITALS: BP 106/64
[2021-07-11] VITALS: BP 96/60
[2021-07-11 06:25] LABS: CHLORIDE 105 mmol/L (98-107); POTASSIUM 4.7 mmol/L (3.5-5.1); SODIUM 132 mmol/L (136-145)
[2021-07-11 06:26] LABS: BUN 48 mg/dl (7-24)
[2021-07-11 08:00] VITALS: BP 98/56
[2021-07-11 12:00] VITALS: BP 89/54
[2021-07-11 16:00] VITALS: BP 89/67
[2021-07-11 20:00] VITALS: BP 94/70
[2021-07-12] VITALS: BP 88/51
[2021-07-12 08:00] VITALS: BP 89/52
[2021-07-12 12:00] VITALS: BP 100/71
[2021-07-12] MEDS ORDERED: ELIQUIS5 M1 PO (15:07)
== END 2021-07-12 17:26 | DRG 291 ==
LOC: ED 13:20 → EDHOLD 16:42 → 4E 16:42
PROVIDERS: Emergency Medicine; ADMIT Internal Medicine; ATTEND Internal Medicine
DX: I11.0 Hypertensive heart disease with heart failure (principal); I50.23 Acute on chronic systolic (congestive) heart failure; N17.0 Acute kidney failure with tubular necrosis; J96.10 Chronic respiratory failure, unspecified whether with hypoxia or hypercapnia; E44.0 Moderate protein-calorie malnutrition; I48.91 Unspecified atrial fibrillation; I25.5 Ischemic cardiomyopathy; I95.9 Hypotension, unspecified; R62.7 Adult failure to thrive; Z51.5 Encounter for palliative care; E78.2 Mixed hyperlipidemia; I44.7 Left bundle-branch block, unspecified; I73.9 Peripheral vascular disease, unspecified; E55.9 Vitamin D deficiency, unspecified; J84.10 Pulmonary fibrosis, unspecified; D69.6 Thrombocytopenia, unspecified; I25.10 Atherosclerotic heart disease of native coronary artery without angina pectoris; I34.0 Nonrheumatic mitral (valve) insufficiency; F17.210 Nicotine dependence, cigarettes, uncomplicated; J43.2 Centrilobular emphysema; F51.01 Primary insomnia; F51.04 Psychophysiologic insomnia

== ENCOUNTER 2021-07-17 14:59 | Inpatient (IN) | payer MEDICARE, OTHER ==
[~2021-07-17] VITALS: Ht 177.8 cm; Wt 70.3 kg
[~2021-07-17 14:59] MED LIST changes: +ELIQUIS5 M1 PO
[2021-07-17 15:07] VITALS: BP 84/61
[2021-07-17 15:57] LABS: BASO % 0.2 % (0.0-1.0); HEMATOCRIT 36.9 % (42.0-52.0); LYMPH # 1.1 10*3/uL (1.3-4.4); LYMPH % 7.1 % (27.0-41.0); MEAN CELL VOLUME 97.1 fl (80.0-94.0); MEAN CORPUSCULAR HGB 33.2 pg (27.0-31.0); MEAN CORPUSCULAR HGB CONC 34.1 g/dl (33.0-37.0); MEAN PLATELET VOLUME 11.5 fl (9.6-12.3); MONO # 1.4 10*3/uL (0.1-1.0); MONO % 8.8 % (3.0-9.0); NEUT # 13.3 10*3/uL (2.3-7.9); NEUT % 83.2 % (47.0-73.0); NUCLEATED RED BLOOD CELL 0.1 10*3/uL (0.0-0.0); NUCLEATED RED BLOOD CELL 0.6 % (0.0-0.0); PLATELET COUNT AUTOMATED 207 10*3/uL (130-400); RED CELL DISTRI WIDTH 13.3 % (0-14.5)
[2021-07-17 16:00] VITALS: BP 58/21
[2021-07-17 16:12] LABS: ACT PARTIAL THROMBO TIME 45.3 SECONDS (20.0-32.1); INTERNATIONAL NORM RATIO 3.2 (2.0-3.5)
[2021-07-17 16:13] LABS: ARTERIAL BLOOD GAS PH 7.485 (7.35-7.45); ARTERIAL BLOOD GAS PO2 91.3 (80-90)
[2021-07-17 16:15] LABS: ABG BASE EXCESS -6.9 mmol/L (-2.0-2.0)
[2021-07-17 16:19] LABS: ALBUMIN 2.2 gm/dl (3.1-4.5); CREATININE 1.7 mg/dL (0.70-1.30); POTASSIUM 5.1 mmol/L (3.5-5.1); TOTAL PROTEIN 6.6 gm/dL (6.4-8.2)
[2021-07-17 16:26] LABS: TROPONIN I 0.62 ng/ml (<0.045)
[2021-07-17 16:30] VITALS: BP 84/61
[2021-07-17 17:00] VITALS: BP 81/60
[2021-07-17 17:30] VITALS: BP 81/55
[2021-07-17 18:00] VITALS: BP 88/55
[2021-07-17 18:07] LABS: BILIRUBIN 1+ (Negative); BLOOD 3+ (Negative); CLARITY Clear (Clear); COLOR Dark Yellow (Yellow); GLUCOSE Negative (Negative); KETONE Trace (Negative); LEUKO ESTERASE Trace (Negative); NITRITE Negative (Negative)
[2021-07-17 18:23] LABS: RBC TNTC rbc/hpf (0-2)
[2021-07-17 18:24] LABS: BACTERIA 1+; EPITHELIAL CELLS 0-2; HYALINE CAST 16-20
[2021-07-18 05:48] VITALS: BP 78/42
[2021-07-18 06:22] VITALS: BP 83/54
[2021-07-18 08:08] VITALS: BP 92/62
[2021-07-18 10:31] VITALS: BP 74/53
== END 2021-07-18 14:33 | disposition hospice, inpatient (51) | DRG 189 ==
LOC: ED 14:59 → EDHOLD 19:18
PROVIDERS: Emergency Medicine; ADMIT Internal Medicine; ATTEND Internal Medicine
DX: J96.21 Acute and chronic respiratory failure with hypoxia (principal); N17.9 Acute kidney failure, unspecified; I50.9 Heart failure, unspecified; I11.0 Hypertensive heart disease with heart failure; Z96.643 Presence of artificial hip joint, bilateral; Z66 Do not resuscitate; Z51.5 Encounter for palliative care; R62.7 Adult failure to thrive; H40.9 Unspecified glaucoma; E78.2 Mixed hyperlipidemia; I25.5 Ischemic cardiomyopathy; I95.9 Hypotension, unspecified; Z68.20 Body mass index [BMI] 20.0-20.9, adult

== ENCOUNTER 2021-07-18 14:40 | Inpatient (IN) | payer OTHER, MEDICARE ==
[~2021-07-18] VITALS: Ht 167.6 cm; Wt 61.7 kg
[2021-07-18 15:40] VITALS: BP 72/37
[2021-07-18 20:00] VITALS: BP 93/54
== END 2021-07-18 23:10 | DRG 177 ==
LOC: EDHOLD 14:40 → 4E 15:24
PROVIDERS: ADMIT Family Medicine; ATTEND Family Medicine
DX: U07.1 COVID-19 (principal); J96.01 Acute respiratory failure with hypoxia; N17.0 Acute kidney failure with tubular necrosis; G93.41 Metabolic encephalopathy; E87.1 Hypo-osmolality and hyponatremia; E87.2 Acidosis; I50.20 Unspecified systolic (congestive) heart failure; D53.9 Nutritional anemia, unspecified; E78.2 Mixed hyperlipidemia; J44.9 Chronic obstructive pulmonary disease, unspecified; I11.0 Hypertensive heart disease with heart failure; J84.10 Pulmonary fibrosis, unspecified; I48.0 Paroxysmal atrial fibrillation; F17.210 Nicotine dependence, cigarettes, uncomplicated; Z79.51 Long term (current) use of inhaled steroids; Z51.5 Encounter for palliative care; Z79.82 Long term (current) use of aspirin; Z79.899 Other long term (current) drug therapy